=== PATIENT | female | born 1940 | race Caucasian/White ===

== ENCOUNTER → 2021-03-18 | Outpatient (CLI) | payer MEDICARE | END | disposition home or self-care (01) | LOC: RAD 11:37 | PROVIDERS: ATTEND Chiropractor | DX: M47.816 Spondylosis without myelopathy or radiculopathy, lumbar region (principal); M16.0 Bilateral primary osteoarthritis of hip; M25.752 Osteophyte, left hip; M25.751 Osteophyte, right hip; M51.34 Other intervertebral disc degeneration, thoracic region; M25.78 Osteophyte, vertebrae; J98.59 Other diseases of mediastinum, not elsewhere classified; M51.36 Other intervertebral disc degeneration, lumbar region; M48.061 Spinal stenosis, lumbar region without neurogenic claudication; G95.89 Other specified diseases of spinal cord ==

== ENCOUNTER 2023-02-15 00:43 | Emergency (ER) | payer MEDICARE ==
[~2023-02-15 00:43] MED LIST: ASPIRIN ADULT L81 M2 PO; BUMETANIDE0.5 MG PO; BUMETANIDE1 MG PO; CARVEDILOL12.5 MG PO; DECADRON6 M1 PO; ENTRESTO 24 MG1 EACH PO; LEVOXYL125 MCG PO; NATURAL LUTEIN20 MG PO; ZOLOFT50 MG PO
== END 2023-02-15 06:00 | disposition home or self-care (01) ==
LOC: ED 00:43
DX: S00.01XA Abrasion of scalp, initial encounter (principal); R73.9 Hyperglycemia, unspecified; E83.41 Hypermagnesemia; E87.1 Hypo-osmolality and hyponatremia; I13.0 Hypertensive heart and chronic kidney disease with heart failure and stage 1 through stage 4 chronic kidney disease, or unspecified chronic kidney disease; N18.9 Chronic kidney disease, unspecified; I50.9 Heart failure, unspecified; Z98.890 Other specified postprocedural states; Z90.12 Acquired absence of left breast and nipple; Z90.710 Acquired absence of both cervix and uterus; W07.XXXA Fall from chair, initial encounter; Y93.89 Activity, other specified; Y92.89 Other specified places as the place of occurrence of the external cause; Y99.8 Other external cause status

== ENCOUNTER 2023-08-24 22:19 | Emergency (ER) | payer MEDICARE ==
[~2023-08-24] VITALS: Ht 165.1 cm; Wt 83.5 kg
[2023-08-24 22:46] LABS: BASO # 0.1 10*3/uL (0.0-0.1); BASO % 0.5 % (0.0-1.0); EOS # 0.3 10*3/uL (0.0-0.4); EOS % 2.3 % (1.0-4.0); HEMATOCRIT 40.4 % (37.0-47.0); LYMPH # 1.7 10*3/uL (1.3-4.4); LYMPH % 11.1 % (27.0-41.0); MEAN CELL VOLUME 87.8 fl (81.0-99.0); MEAN CORPUSCULAR HGB 29.3 pg (27.0-31.0); MEAN CORPUSCULAR HGB CONC 33.4 g/dl (33.0-37.0); MEAN PLATELET VOLUME 10.8 fl (9.6-12.3); MONO # 1.2 10*3/uL (0.1-1.0); MONO % 8.2 % (3.0-9.0); NEUT # 11.5 10*3/uL (2.3-7.9); NEUT % 77.6 % (47.0-73.0); PLATELET COUNT AUTOMATED 318 10*3/uL (130-400); RED CELL DISTRI WIDTH 13.7 % (0-14.5); WHITE BLOOD COUNT 14.8 10*3/uL (4.8-10.8)
[2023-08-24 23:09] LABS: ACT PARTIAL THROMBO TIME 28.7 SECONDS (20.0-32.1)
[2023-08-24 23:20] LABS: POTASSIUM 4.3 mmol/L (3.4-5.1); TOTAL PROTEIN 7.3 gm/dL (6.0-8.0)
[2023-08-25 00:01] LABS: BILIRUBIN Negative (Negative); BLOOD Negative (Negative); CLARITY Clear (Clear); COLOR Yellow (Yellow); GLUCOSE Negative (Negative); KETONE Trace (Negative); LEUKO ESTERASE Trace (Negative); NITRITE Negative (Negative); SPECIFIC GRAVITY 1.015 (1.001-1.030)
[2023-08-25 00:12] LABS: BACTERIA 1+
[2023-08-25 00:13] LABS: WBC 0-2 wbc/hpf (0-5)
== END 2023-08-25 03:33 | disposition home or self-care (01) ==
LOC: ED 22:19
PROVIDERS: Internal Medicine
DX: M79.605 Pain in left leg (principal); I10 Essential (primary) hypertension; Z79.899 Other long term (current) drug therapy; Z98.890 Other specified postprocedural states; Z90.12 Acquired absence of left breast and nipple; Z90.710 Acquired absence of both cervix and uterus; W19.XXXA Unspecified fall, initial encounter

== ENCOUNTER 2025-09-06 18:37 | Emergency (ER) | payer MEDICARE ==
[~2025-09-06] VITALS: Ht 152.4 cm; Wt 80.7 kg
[~2025-09-06 18:37] MED LIST changes: +ATORVASTATIN CA40 M1 PO; +Accuneb 0.1.25 MG/3 INH; +DIOVAN160 M2 PO; +MECLIZINE HYD12.5 MG PO; +OMNICEF300 MG PO; +ZITHROMAX250 MG PO
[2025-09-06 19:29] LABS: BASO # 0.1 10*3/uL (0.0-0.1); BASO % 0.8 % (0.0-1.0); EOS # 0.5 10*3/uL (0.0-0.4); EOS % 4.7 % (1.0-4.0); MEAN CELL VOLUME 88.9 fl (81.0-99.0); MEAN CORPUSCULAR HGB 29.6 pg (27.0-31.0); MEAN PLATELET VOLUME 10.7 fl (9.6-12.3); MONO # 0.9 10*3/uL (0.1-1.0); MONO % 8.3 % (3.0-9.0); NEUT # 7.0 10*3/uL (2.3-7.9); NEUT % 63.2 % (47.0-73.0); NUCLEATED RED BLOOD CELL 0.0 % (0.0-0.0); NUCLEATED RED BLOOD CELL 0.0 10*3/uL (0.0-0.0); PLATELET COUNT AUTOMATED 342 10*3/uL (130-400); RED CELL DISTRI WIDTH 13.5 % (0-14.5)
[2025-09-06 19:51] LABS: BUN 24.0 mg/dl (9-23); SGPT/ALT 13.0 U/L (5-49)
[2025-09-06] MEDS ORDERED: Water, Sterile 10 ML VIAL ONE (19:58)
[2025-09-06] MEDS ORDERED: PREDNISONE10 M1 PO (21:38)
== END 2025-09-06 21:43 | disposition home or self-care (01) ==
LOC: ED 18:37
PROVIDERS: Nurse Practitioner Family
DX: L25.9 Unspecified contact dermatitis, unspecified cause (principal); I10 Essential (primary) hypertension; E03.9 Hypothyroidism, unspecified; E78.5 Hyperlipidemia, unspecified; F32.A Depression, unspecified; I25.10 Atherosclerotic heart disease of native coronary artery without angina pectoris; Z88.8 Allergy status to other drugs, medicaments and biological substances